=== PATIENT | female | born 1995 | race Caucasian/White ===

== ENCOUNTER 2024-04-07 22:34 | Emergency (ER) | payer OTHER ==
[~2024-04-07] VITALS: Wt 116.1 kg
[2024-04-07] MEDS ORDERED: SODIUM CHLORIDE 0.9% 1,000 ML IV ONE (23:00)
[2024-04-07 23:09] LABS: BASO # 0.1 10*3/uL (0.0-0.1); BASO % 0.4 % (0.0-1.0); EOS # 0.2 10*3/uL (0.0-0.4); EOS % 1.3 % (1.0-4.0); HEMATOCRIT 43.9 % (37.0-47.0); LYMPH # 4.4 10*3/uL (1.3-4.4); LYMPH % 31.1 % (27.0-41.0); MEAN CELL VOLUME 85.4 fl (81.0-99.0); MEAN CORPUSCULAR HGB CONC 32.8 g/dl (33.0-37.0); MEAN PLATELET VOLUME 10.4 fl (9.6-12.3); MONO # 0.6 10*3/uL (0.1-1.0); MONO % 4.4 % (3.0-9.0); NEUT # 8.7 10*3/uL (2.3-7.9); NEUT % 62.3 % (47.0-73.0); PLATELET COUNT AUTOMATED 245 10*3/uL (130-400); RED BLOOD COUNT 5.14 10*6/uL (4.10-5.10); RED CELL DISTRI WIDTH 12.2 % (0-14.5)
[2024-04-07 23:30] LABS: ALKALINE PHOSPHATASE 59 U/L (46-116); BUN 14 mg/dl (9-23); CHLORIDE 107 mmol/L (98-107); POTASSIUM 3.2 mmol/L (3.4-5.1); SGPT/ALT 14 U/L (5-49); TOTAL PROTEIN 7.5 gm/dL (6.0-8.0)
[2024-04-08] MEDS ORDERED: Ondansetron Hydrochloride 4 MG/2 ML VIAL IV ONE (00:35)
[2024-04-08 01:03] LABS: BILIRUBIN Negative (Negative); BLOOD Negative (Negative); CLARITY Cloudy (Clear); COLOR Yellow (Yellow); GLUCOSE 2+ (Negative); KETONE Trace (Negative); LEUKO ESTERASE Negative (Negative); NITRITE Negative (Negative); SPECIFIC GRAVITY >= 1.030 (1.001-1.030)
[2024-04-08 01:10] LABS: BACTERIA 2+
[2024-04-08 01:10] LABS: URINE AMPHETAMINES Negative (1000ng/ml); URINE BARBITURATES Negative (200ng/ml); URINE BENZODIAZEPINES Negative (200ng/ml); URINE CANNABINOIDS (THC) Negative (50ng/ml); URINE COCAINE Negative (300ng/ml); URINE METHADONE Negative (300ng/ml); URINE OPIATES Negative (300ng/ml); URINE PHENCYCLIDINE Negative (25ng/ml)
[2024-04-08] MEDS ORDERED: ACETAMINOPHEN 325 MG TAB PO ONE (01:50)
[2024-04-08] MEDS ORDERED: Metoclopramide Hydrochloride 10 MG/2 ML AMP IV ONE (02:40)
[2024-04-08] MEDS ORDERED: POTASSIUM CHLORIDE 20 MEQ TAB PO ONE (03:55)
== END 2024-04-08 04:15 | disposition home or self-care (01) ==
LOC: ED 22:34
PROVIDERS: Emergency Medicine
DX: R11.2 Nausea with vomiting, unspecified (principal); R42 Dizziness and giddiness; E87.6 Hypokalemia; R55 Syncope and collapse; R73.9 Hyperglycemia, unspecified; Z88.2 Allergy status to sulfonamides